=== PATIENT | female | born 1980 | race Hispanic/Latino ===

== ENCOUNTER → 2023-07-29 07:34 | Outpatient (REF) | payer OTHER, SELFPAY ==
[2023-07-29 08:31] LABS: ALT (SGPT) 20 U/L (0-35); AST (SGOT) 22 U/L (14-36); Albumin 4.4 g/dl (3.5-5.0); Alkaline Phosphatase 108 U/L (38-126); Blood Urea Nitrogen 11 mg/dl (7-17); Calcium 9.6 mg/dl (8.4-10.2); Carbon Dioxide 21 mmol/L (22-30); Chloride 106 mmol/L (98-107); Glucose 98 mg/dl (70-99); HDL Cholesterol 34 mg/dl; LDL Cholesterol, Calculated 88 mg/dl; Potassium 4.4 mmol/L (3.5-5.1); Sodium 138 mmol/L (135-145); Total Bilirubin 0.4 mg/dl (0.2-1.3); Total Cholesterol 182 mg/dl (50-199); Total Protein 7.6 g/dl (6.3-8.2); Triglyceride 300 mg/dl (10-149); Very Low Density Lipoprotein 60 mg/dl (0-30); eGFR > 60.00
[2023-07-29 09:22] LABS: Glycohemoglobin (HgbA1c) 5.7 % (4.0-5.6)
== END ==
LOC: CLINIC 07:34
PROVIDERS: ATTENDING PHYSICIAN Nurse Practitioner Adult Health
DX: R73.03 Prediabetes (principal)
CPT/HCPCS: 36415; 80053; 80061; 83036

== ENCOUNTER → 2023-10-27 07:47 | Outpatient (REF) | payer OTHER, SELFPAY ==
[2023-10-27 10:44] LABS: Glycohemoglobin (HgbA1c) 5.4 % (4.0-5.6)
[2023-10-27 10:57] LABS: HDL Cholesterol 27 mg/dl; Total Cholesterol 247 mg/dl (50-199)
[2023-10-27 11:23] LABS: Triglyceride 1159 mg/dl (10-149)
[2023-10-27 11:45] LABS: LDL Cholesterol, Direct 84 mg/dl
== END ==
LOC: CLINIC 07:47
PROVIDERS: ATTENDING PHYSICIAN Nurse Practitioner Adult Health
DX: R73.03 Prediabetes (principal); E78.1 Pure hyperglyceridemia
CPT/HCPCS: 36415; 80061; 83036; 83721

== ENCOUNTER → 2024-03-19 10:02 | Outpatient (REF) | payer OTHER, SELFPAY ==
[2024-03-19 11:46] LABS: HDL Cholesterol 35 mg/dl; LDL Cholesterol, Calculated 115 mg/dl; Total Cholesterol 185 mg/dl (50-199); Triglyceride 176 mg/dl (10-149); Very Low Density Lipoprotein 35 mg/dl (0-30)
[2024-03-19 16:38] LABS: TSH Reflex To Free T4 1.88 uIU/ml (0.47-4.68)
== END ==
LOC: CLINIC 10:02
PROVIDERS: ATTENDING PHYSICIAN Nurse Practitioner Adult Health
DX: E78.1 Pure hyperglyceridemia (principal)
CPT/HCPCS: 36415; 80061; 84443

== ENCOUNTER → 2024-06-01 09:38 | Outpatient (REF) | payer OTHER, SELFPAY ==
[2024-06-01 11:10] LABS: Hematocrit 38.9 % (37.0-47.0); Hemoglobin 12.8 g/dL (12.0-16.0); Mean Corp Hgb Conc. 32.9 g/dL (33.0-37.0); Mean Corpuscular Hgb 27.6 pg (27.0-31.0); Mean Corpuscular Volume 83.8 fL (81.0-99.0); Mean Platelet Volume 9.3 fL (7.4-10.4); Platelet Count 311 10^3/uL (130-400); Red Blood Cell Count 4.64 10^6/uL (4.20-5.40); Red Cell Dist. Width 13.5 % (11.5-14.5); White Blood Cell Count 5.9 10^3/uL (4.8-10.8)
[2024-06-01 12:04] LABS: ALT (SGPT) 22 U/L (0-35); AST (SGOT) 22 U/L (14-36); Albumin 4.7 g/dl (3.5-5.0); Alkaline Phosphatase 77 U/L (38-126); Blood Urea Nitrogen 10 mg/dl (7-17); Calcium 9.3 mg/dl (8.4-10.2); Carbon Dioxide 27 mmol/L (22-30); Chloride 103 mmol/L (98-107); Glucose 88 mg/dl (70-99); HDL Cholesterol 37 mg/dl; LDL Cholesterol, Calculated 125 mg/dl; Potassium 4.6 mmol/L (3.5-5.1); Sodium 138 mmol/L (135-145); Total Bilirubin 0.5 mg/dl (0.2-1.3); Total Cholesterol 197 mg/dl (50-199); Total Protein 7.6 g/dl (6.3-8.2); Triglyceride 176 mg/dl (10-149); Very Low Density Lipoprotein 35 mg/dl (0-30); eGFR > 60.00
[2024-06-01 12:16] LABS: Glycohemoglobin (HgbA1c) 5.3 % (4.0-5.6)
== END ==
LOC: CLINIC 09:38
PROVIDERS: ATTENDING PHYSICIAN Nurse Practitioner Adult Health
DX: R73.03 Prediabetes (principal); Z00.00 Encounter for general adult medical examination without abnormal findings
CPT/HCPCS: 36415; 80053; 80061; 83036; 85027